=== PATIENT | male | born 1980 | race Caucasian/White ===

== ENCOUNTER → 2018-02-05 | Outpatient (REF) | payer OTHER ==
[2018-02-05 20:03] LABS: C REACTIVE PROTEIN QUANTITATIV 3.49 MG/DL (0.00-0.30); CREATININE FOR GFR 1.01 MG/DL (0.70-1.30); GLOMERULAR FILTRATION RATE > 60.0 (>60); URIC ACID 8.8 MG/DL (3.5-7.2)
[2018-02-05 20:03] LABS: BLOOD UREA NITROGEN 18 MG/DL (7-18)
[2018-02-05 21:26] LABS: ERYTHROCYTE SEDIMENTATION RATE 30 mm/hr (0-15)
== END ==
LOC: M LAB REF 10:30
DX: M10.071 Idiopathic gout, right ankle and foot (principal)